=== PATIENT | male | born 1950 | race Caucasian/White ===

== ENCOUNTER 2016-08-20 | Outpatient (CLI) | payer OTHER | END 2016-08-20 14:34 | disposition critical access hospital (66) | CPT/HCPCS: A0425; A0429 ==

== ENCOUNTER 2016-08-20 14:55 | Emergency (ER) | payer OTHER ==
[2016-08-20] MEDS ORDERED: IBUPROFEN 800 MG TABLET PO STA (16:02)
[2016-08-20] MEDS ORDERED: IBUPROFEN 800 MG TABLET PO ONE (16:05)
== END 2016-08-20 16:15 | disposition home or self-care (01) ==
DX: S06.0X1A Concussion with loss of consciousness of 30 minutes or less, initial encounter (principal); S00.01XA Abrasion of scalp, initial encounter; M54.2 Cervicalgia; V68.4XXA Person boarding or alighting a heavy transport vehicle injured in noncollision transport accident, initial encounter; W17.89XA Other fall from one level to another, initial encounter; Y93.89 Activity, other specified; R03.0 Elevated blood-pressure reading, without diagnosis of hypertension; Z79.82 Long term (current) use of aspirin
CPT/HCPCS: 70450; 70486; 72125; 93010; 99284; A9270

== ENCOUNTER 2016-11-24 11:29 | Emergency (ER) | payer OTHER | END 2016-11-24 14:24 | disposition home or self-care (01) | DX: S61.211A Laceration without foreign body of left index finger without damage to nail, initial encounter (principal); W45.8XXA Other foreign body or object entering through skin, initial encounter; Y99.0 Civilian activity done for income or pay; K21.9 Gastro-esophageal reflux disease without esophagitis; Z79.82 Long term (current) use of aspirin ==

== ENCOUNTER 2016-11-26 07:33 | Outpatient (CLI) | payer OTHER | END 2016-11-26 07:34 | disposition home or self-care (01) | DX: E78.5 Hyperlipidemia, unspecified (principal) ==

== ENCOUNTER 2017-02-03 07:24 | Outpatient (CLI) | payer OTHER ==
[2017-02-03 10:43] LABS: ALBUMIN/GLOBULIN RATIO 1.6 (1.0-2.2); BILIRUBIN,TOTAL 0.7 mg/dL (0.2-1.0); BUN - BLOOD UREA NITROGEN 15 mg/dL (6-20); CALCIUM 9.1 mg/dL (8.5-10.3); CARBON DIOXIDE - CO2 26 mmol/L (21-32); CHLORIDE 105 mmol/L (101-111); CHOL/HDL RATIO 2.9 (<5.0); CHOLESTEROL 158 mg/dL; CREATININE 1.1 mg/dL (0.6-1.2); GFR - MDRD 67 (>89); GLUCOSE 109 mg/dL (70-100); HDL CHOLESTEROL 54 mg/dL; LDL/HDL RATIO 1.6 (<3.6); POTASSIUM 4.1 mmol/L (3.5-5.0); SODIUM 137 mmol/L (135-145); TOTAL PROTEIN 6.9 g/dL (6.7-8.2); TRIGLYCERIDES 91 mg/dL; VLDL CHOLESTEROL 18 mg/dL
== END 2017-02-03 07:25 | disposition home or self-care (01) ==
LOC: LAB.F 07:24
PROVIDERS: ATTEND Internal Medicine
DX: Z00.00 Encounter for general adult medical examination without abnormal findings (principal); S06.0X1A Concussion with loss of consciousness of 30 minutes or less, initial encounter; K21.9 Gastro-esophageal reflux disease without esophagitis; E78.5 Hyperlipidemia, unspecified; D17.9 Benign lipomatous neoplasm, unspecified
CPT/HCPCS: 36415; 80053; 80061

== ENCOUNTER 2018-09-09 09:17 | Outpatient (CLI) | payer OTHER, MEDICARE | END 2018-09-09 09:18 | disposition home or self-care (01) | LOC: SC 09:17 | PROVIDERS: ATTEND Internal Medicine Pulmonary Disease | DX: R06.81 Apnea, not elsewhere classified (principal); R41.89 Other symptoms and signs involving cognitive functions and awareness; G47.10 Hypersomnia, unspecified; R06.83 Snoring; G47.8 Other sleep disorders | CPT/HCPCS: 99203; 99212 ==

== ENCOUNTER 2018-09-16 21:37 | Outpatient (CLI) | payer OTHER, MEDICARE | END 2018-09-16 21:38 | disposition home or self-care (01) | LOC: SC 21:37 | PROVIDERS: ATTEND Internal Medicine Pulmonary Disease | DX: G47.33 Obstructive sleep apnea (adult) (pediatric) (principal); G47.61 Periodic limb movement disorder | CPT/HCPCS: 95810 ==

== ENCOUNTER 2018-10-13 09:01 | Outpatient (CLI) | payer OTHER, MEDICARE | END 2018-10-13 09:02 | disposition home or self-care (01) | LOC: SC 09:01 | PROVIDERS: ATTEND Nurse Practitioner Family | DX: G47.33 Obstructive sleep apnea (adult) (pediatric) (principal); G47.61 Periodic limb movement disorder | CPT/HCPCS: 99212; 99215 ==

== ENCOUNTER 2019-02-16 16:16 | Outpatient (CLI) | payer MEDICARE, OTHER ==
--- NOTE | 2019-02-18 15:08 | Ultrasound Report ---
Reason: MASS OF NECK Procedure Date: 02/16/2019 Accession Number: [id number] / [id number] Procedure: US - Head or Neck Soft Tissue CPT Code: FULL RESULT: EXAM: MUSCULOSKELETAL THORACIC WALL ULTRASOUND EXAM DATE: 02/16/2019 05:00 PM. CLINICAL HISTORY: Mass of neck. COMPARISON: None. TECHNIQUE: Real-time sonographic imaging was performed by the oil burner installer utilizing color-flow. Multiple sales representative jewelry static images were saved for review. FINDINGS: Grayscale and limited color Doppler examination of the right sternoclavicular joint region giving rise to the palpable lump is performed with comparison images taken of the left sternoclavicular region. Emanating from the right sternoclavicular articulation is a 2.3 x 0.5 cm heterogeneous hypoechoic mass with suggestion of calcifications and no increased vascularity by color Doppler. No fluid collection or vascular masses appreciated. IMPRESSION: Mass-like soft tissue arising from the right sternoclavicular joint is sonographically nonspecific. [facility]
== END 2019-02-16 16:17 | disposition home or self-care (01) ==
LOC: DI 16:16
PROVIDERS: ATTEND Nurse Practitioner Family
DX: R22.1 Localized swelling, mass and lump, neck (principal)
CPT/HCPCS: 76536

== ENCOUNTER 2019-03-02 14:36 | Outpatient (CLI) | payer MEDICARE, OTHER ==
[2019-03-02 15:14] LABS: ALBUMIN 4.3 g/dL (3.2-5.5); ALBUMIN/GLOBULIN RATIO 1.5 (1.0-2.2); BILIRUBIN,TOTAL 0.5 mg/dL (0.2-1.0); CALCIUM 9.5 mg/dL (8.5-10.3); CREATININE 1.1 mg/dL (0.6-1.2); TOTAL PROTEIN 7.2 g/dL (6.7-8.2)
[2019-03-02] MEDS ORDERED: IOVERSOL 320 100 ML VIAL IVP ONE (18:17)
--- NOTE | 2019-03-03 14:14 | CT Report ---
Reason: MASS OF CHEST WALL Procedure Date: 03/02/2019 Accession Number: [id number] / [id number] Procedure: CT - CHEST W CPT Code: FULL RESULT: EXAM: CT CHEST EXAM DATE: 03/02/2019 03:45 PM. CLINICAL HISTORY: MASS OF CHEST WALL. COMPARISONS: ABDOMEN/PELVIS W/ 12/14/2013 2:22 PM. TECHNIQUE: Routine helical CT imaging was performed through the chest. IV contrast: 80 cc Optiray 320. Reconstructions: Coronal and sagittal. In accordance with CT protocol optimization, one or more of the following dose reduction techniques were utilized for this exam: automated exposure control, adjustment of mA and/or KV based on patient size, or use of iterative reconstructive technique. FINDINGS: Lungs/Pleura: No nodules, bronchial thickening, consolidation, or edema. Pulmonary vasculature is normal. No pericardial or pleural effusion. No pneumothorax. Mediastinum: Normal. No adenopathy or masses. The heart and great vessels are normal. Bones: Unremarkable. Visualized Abdomen: There is hepatic steatosis. There are left central renal hypodensities which could represent parapelvic cysts. There is a relatively stable 1.6 x 1.6 cm hypodensity in segment 7 of the liver. The visualized portions of the upper abdominal organs demonstrate no acute abnormalities. Other: No CT evidence of focal chest wall abnormality. IMPRESSION: 1. There is no CT evidence of focal chest wall abnormality. 2. The lungs demonstrate no acute or chronic pulmonary CT process. 3. Heart size is within normal limits. 4. There is hepatic steatosis. 5. There is a stable 1.6 x 1.6 cm hypodense mass within segment 7 of the liver. Stability suggests a benign etiology. [facility]IA
== END 2019-03-02 14:37 | disposition home or self-care (01) ==
LOC: DI 14:36
PROVIDERS: ATTEND Nurse Practitioner Family
DX: K76.0 Fatty (change of) liver, not elsewhere classified (principal); R16.0 Hepatomegaly, not elsewhere classified; R22.2 Localized swelling, mass and lump, trunk
CPT/HCPCS: 36415; 71260; 80053

== ENCOUNTER 2020-02-09 19:46 | Outpatient (CLI) | payer MEDICARE, OTHER | END 2020-02-09 19:47 | disposition home or self-care (01) | LOC: COV 19:46 | PROVIDERS: ATTEND Family Medicine | DX: R50.9 Fever, unspecified (principal); M79.10 Myalgia, unspecified site; R19.7 Diarrhea, unspecified; Z20.828 Contact with and (suspected) exposure to other viral communicable diseases ==

== ENCOUNTER 2021-12-31 13:14 | Outpatient (CLI) | payer MEDICARE, OTHER ==
--- NOTE | 2021-12-31 15:19 | XRAY Report ---
PROCEDURE: Foot 3 View LT INDICATIONS: PAIN IN LEFT FOOT TECHNIQUE: 3 views of the foot were acquired. COMPARISON: None FINDINGS: Bones: No fractures or dislocations. No suspicious bony lesions. Soft tissues: No tibiotalar joint effusion. Achilles tendon appears normal. IMPRESSION: No acute fracture. No osseous lesion. If symptoms and/or clinical suspicion for pathology continue, f urther assessment with repeat plain films, or advanced imaging (e.g., CT, MRI, or bone scan) is recom mended for further assessment. Reviewed by: Raymond Wu MD on 12/31/2021 3:18 PM PDT Approved by: Raymond Wu MD on 12/31/2021 3:18 PM PDT Station ID: [id number]
--- NOTE | 2021-12-31 15:20 | XRAY Report ---
PROCEDURE: Ankle 3 View LT INDICATIONS: PAIN IN LEFT ANKLE JOINT TECHNIQUE: 3 views of the ankle were acquired. COMPARISON: None FINDINGS: Bones: No fractures or dislocations. Ankle mortise is normally aligned. No suspicious bony lesions . Soft tissues: No tibiotalar joint effusion. Achilles tendon appears normal. IMPRESSION: No acute fracture. No osseous lesion. If symptoms and/or clinical suspicion for patholog y continue, further assessment with repeat plain films, or advanced imaging (e.g., CT, MRI, or bone s can) is recommended for further assessment. Reviewed by: Raymond Wu MD on 12/31/2021 3:19 PM PDT Approved by: Raymond Wu MD on 12/31/2021 3:19 PM PDT Station ID: [id number]
== END 2021-12-31 13:15 | disposition home or self-care (01) ==
LOC: DI.S 13:14
PROVIDERS: ATTEND Nurse Practitioner Family
DX: M25.572 Pain in left ankle and joints of left foot (principal); M79.672 Pain in left foot

== ENCOUNTER 2023-09-01 08:00 | Outpatient (CLI) | payer MEDICARE, OTHER ==
--- NOTE | 2023-09-02 10:04 | XRAY Report ---
PROCEDURE: Cervical Spine 2-3V INDICATIONS: CERVICAL RADICULOPATHY TECHNIQUE: 3 views of the cervical spine were acquired. COMPARISON: Cervical spine CT 08/20/2016 FINDINGS: Bones: No fractures or dislocations to the T1 level. The lateral masses of C1 appear intact on the odontoid view. No suspicious bony lesions. 2 mm grade 1 anterolisthesis at C4-5. 2 mm grade 1 retro listhesis at C5-6. Multilevel disc space narrowing and degenerative endplate changes are seen that ar e most prominent at the C5-6 level. There is multilevel degenerative joint and facet hypertrophy. Soft tissues: No prevertebral soft tissue swelling. IMPRESSION: 1.No acute osseous abnormality. If symptoms persist or there is continued clinical concern, further e valuation with MRI or CT may be helpful. 2.Moderate multilevel spondylosis and degenerative spondylolisthesis. Reviewed by: Robert Romeo MD on 09/02/2023 10:03 AM PST Approved by: Robert Romeo MD on 09/02/2023 10:03 AM PST Station ID: [id number]
== END 2023-09-01 23:59 | disposition home or self-care (01) ==
LOC: DI.S 08:00
PROVIDERS: ATTEND Registered Nurse
DX: M47.22 Other spondylosis with radiculopathy, cervical region (principal); M43.12 Spondylolisthesis, cervical region